=== PATIENT | male | born 1955 | race Caucasian/White ===

== ENCOUNTER 2016-09-20 22:38 | Emergency (ER) | payer OTHER ==
[~2016-09-20 22:38] MED LIST: ADVAIR 250/501 DISK IH; ADVAIR 500/501 DISK IH; ADVAIR HFA120 INHALA IH; ALBUTEROL SULF8.5 GM IH; ALPRAZOLAM2 MG PO; AMLODIPINE BESYL5 MG PO; ASPIR 8181 M1 PO; BESIVANCE5 ML RIGHT EYE; BUMETANIDE2 MG PO; CARDIZEM CD,CA300 MG PO; CARDIZEM CD240 MG PO; COSOPT EYE DROPS5 ML RIGHT EYE; COUMADIN5 MG PO; COUMADIN6 MG PO; CYMBALTA30 MG PO; Cardizem CD,Cartia XT,Tiazac PO; DELTASONE20 M1 PO; DESYREL 150 MG150 MG PO; DESYREL100 MG PO; DILAUDID2 MG PO; DILTIAZEM 24HR360 M1 PO; DOLOPHINE HCL5 MG PO; DOXYCYCLINE HY100 M3 PO; DOXYCYCLINE HY100 MG PO; DUREZOL 0.100 DROP/5 RIGHT EYE; ELAVIL10 MG PO; ELIQUIS5 MG PO; ENDOCET 5-3251 EACH PO; ERYTHROMYC1 APPLICAT BOTH EYES; ERYTHROMYC1 APPLICAT LEFT EYE; FENOFIBRATE160 M1 PO; FLEXERIL10 MG PO; GLEEVEC400 MG PO; GLIPIZIDE ER2.5 MG PO; GLIPIZIDE XL10 M1 PO; GLIPIZIDE XL10 MG PO; GLIPIZIDE10 MG PO; GLIPIZIDE5 M1 PO; GLUCOPHAGE500 MG PO; GLUCOPHAGE850 MG PO; HYDRALAZINE HCL50 MG PO; LANTUS 3 M100 UNITS1 SC; LATANOPROST2.5 ML RIGHT EYE; LEVAQUIN500 MG PO; LEVAQUIN750 MG PO; LEVOFLOXACIN750 MG PO; LISINOPRIL-HCT1 EAC3 PO; LOVAZA1 GM PO; LOVENOX150 MG/1 M SC; LYRICA100 MG PO; LYRICA150 MG PO; LYRICA75 MG PO; MATZIM PO; MEDROL DOSEPAK4 MG PO; METHYLPHENIDATE20 MG PO; MOTRIN800 MG PO; MUCINEX600 MG PO; NITROSTAT0.4 MG SL; OXAYDO5 MG PO; OXYCODONE HCL15 MG PO; OXYCODONE10 MG PO; OXYCONTIN60 MG PO; PERCOCET 10/1 TABLET PO; PERCOCET 5/31 TABLET PO; PREDNISONE10 MG PO; PREDNISONE20 MG PO; PREDNISONE50 MG PO; PROSCAR5 MG PO; REQUIP1 MG PO; ROSUVASTATIN CA10 MG PO; ROXICET 5-3251 EACH PO; SIMBRINZA 1%-0.28 ML RIGHT EYE; SIMVASTATIN20 MG PO; SINGULAIR10 MG PO; SPIRIVA RESPIMAT4 GM IH; TRAZODONE HCL150 MG PO; TYLENOL WITH C1 EACH PO; VALIUM5 MG PO; VALTREX1000 MG PO; VENTOLIN HFA18 GM IH; VITAMIN B-121000 MCG PO; VITAMIN B-12500 MC2 PO; VITAMIN B-12500 MC5 SL; Vitamin B-12 PO; WARFARIN SODIUM1 MG PO; XARELTO15 MG PO; Xanax PO; ZESTORETIC,P1 TABLE1 PO; Zocor PO
[2016-09-20 22:55] LABS: CREATININE 1.6 mg/dL (0.6-1.3); POTASSIUM 4.8 mEq/L (3.7-5.4)
[2016-09-20 23:27] LABS: AMYLASE 81 IU/L (1-118); CHLORIDE 98 mEq/L (99-109); POTASSIUM 5.2 mEq/L (3.7-5.4); SODIUM 150 mEq/L (136-147)
[2016-09-20 23:29] LABS: GLUCOSE 238 mg/dL (70-99)
[2016-09-20 23:30] LABS: ANION GAP 29 MEQ/L (2-14)
[2016-09-20 23:32] LABS: PTT 29.3 (25-32); SERUM ETHYL ALCOHOL < 10 mg/dL
[2016-09-20 23:33] LABS: GFR ESTIMATE (CALCULATED) 51 mL/min/; UREA NITROGEN (BUN) 44 mg/dL (9-23)
[2016-09-20 23:36] LABS: LIPASE 29 U/L (1.0-51.0)
[2016-09-20 23:39] LABS: TROP-I INTERPRETATION NEGATIVE; TROPONIN-I 0.04 ng/mL (0.0-0.30)
[2016-09-20 23:40] LABS: EOSINOPHIL (%) 0.2 % (0-5); HEMATOCRIT 22.1 % (38.0-50.0); IMMATURE GRANULOCYTE (%) 6.9 % (0.0-0.7); IMMATURE GRANULOCYTE COUNT 5.7 K/uL; LYMPHOCYTE COUNT 3.7 K/uL (1.0-2.8); MCH 29.4 PG (29.0-34.0); MCHC 31.7 G/DL (30.0-36.0); MEAN PLAT.VOLUME 10.6 uM^3 (9.0-12.4); MONOCYTE (%) 4.5 % (3-12); MONOCYTE COUNT 0.4 K/uL (0-0.8); NEUTROPHIL (%) 42.9 % (45-76); NEUTROPHIL COUNT 3.6 K/uL (1.8-6.4); PLATELET COUNT 186 K/uL (156-360); RBC DIS.WIDTH-CV 16.3 % (11.8-14.6); RBC DIS.WIDTH-SD 52.2 % (39-53); WHITE BLOOD COUNT 8.3 K/uL (4.1-10.2)
[2016-09-20 23:51] LABS: RED BLOOD COUNT 2.38 M/uL (4.00-5.50)
[2016-09-20 23:52] LABS: MCV 92.9 FL (86-99)
[2016-09-21 00:08] LABS: PROTHROMBIN TIME 31.8 (9.2-11.2)
[2016-09-21 01:27] LABS: ABS NEUTROPHIL COUNT 3.82; ANISOCYTOSIS 1+; EOSINOPHIL ABS CT 0.08; MACROCYTES RARE; POLYCHROMASIA 1+; TEAR DROP CELLS OCC
[2016-09-21 01:28] LABS: USER ID SLU
== END 2016-09-20 22:59 ==
LOC: EME 22:38
PROVIDERS: Emergency Medicine
PROC: 06HM33Z Insertion of Infusion Device into Right Femoral Vein, Percutaneous Approach (ICD-10-PCS; principal; 2016-09-20)
PROC: 5A12012 Performance of Cardiac Output, Single, Manual (ICD-10-PCS; 2016-09-20)
DX: I46.9 Cardiac arrest, cause unspecified (principal); M21.962 Unspecified acquired deformity of left lower leg; W19.XXXA Unspecified fall, initial encounter; Z79.4 Long term (current) use of insulin; Z79.01 Long term (current) use of anticoagulants; E66.01 Morbid (severe) obesity due to excess calories
CPT/HCPCS: 80047; 80048; 81003; 82150; 83605; 83690; 84484; 85025; 85610; 85730; 86850; 86900; 86901; 87040; 87077; 87801; 92950; 99281; 99285; G0480; J0171; J0282; J2310